=== PATIENT | male | born 1970 | race Two or more races ===

== ENCOUNTER 2020-05-28 19:07 | Emergency (ER) | payer BC, MEDICAID ==
[~2020-05-28] VITALS: Ht 167.6 cm; Wt 97.5 kg
[~2020-05-28 19:07] MED LIST: IBUP-1953 PO
--- NOTE | 2020-05-28 19:34 | NUR ---
PATIENT CAME TO ER BED 10 BIBWIFE C/O RED BUMPS ON EXTREMITIES AND NECK W/ ITCHINESS SINCE THIS MORNING. PATIENT DOES NOT KNOW WHAT MIGHT HAVE CAUSED IT. PATIENT STATES THAT HE TOOK CLARITIN AT 1300. NO SWELLING OF THROAT. PATIENT HAS LEFT EYELID SWELLING. PATIENT IS AAOX4. DENIES SOB. BREATHING EVENLY AND UNLABORED ON ROOM AIR. CONNECTED TO THE MONITOR.
[2020-05-28] MEDS ORDERED: DEXAMETHASONE 1 MG TABLET ONE (19:51)
[2020-05-28] MEDS ORDERED: DEXAMETHASONE 4 MG TABLET ONE (19:51)
[2020-05-28] MEDS ORDERED: diphenhydrAMINE HCL 25 MG CAPSULE ONE (19:51)
[2020-05-28] MEDS ORDERED: DIPHENHYDRAMINE HCL 12.5 MG/5 ML UDC PO ONE (20:00)
[2020-05-28] MEDS ORDERED: DEXAMETHASONE 1 MG TABLET PO ONE (20:00)
[2020-05-28 20:03] LABS: BASOPHILS # (AUTO) 0.1 /CMM (0.0-0.2); BASOPHILS % (AUTO) 0.6 % (0.0-2.0); EOSINOPHILS % (AUTO) 3.3 % (0.0-6.0); HEMATOCRIT 47 % (39-51); HEMOGLOBIN 16.2 g/dL (13.5-17.5); LYMPHOCYTES # (AUTO) 3.1 /CMM (0.8-4.8); LYMPHOCYTES % (AUTO) 38.6 % (20.0-44.0); MEAN CORPUSCULAR HGB CONC 35 g/dl (31.0-36.0); MEAN CORPUSCULAR VOLUME 88 fL (80-96); MONOCYTES # (AUTO) 0.5 /CMM (0.1-1.30); MONOCYTES % (AUTO) 6.3 % (2.0-12.0); NEUTROPHILS # (AUTO) 4.2 /CMM (1.8-8.9); NEUTROPHILS % (AUTO) 51.2 % (43.0-81.0); PLATELET COUNT (AUTO) 253 /CMM (150-450); RED BLOOD CELL COUNT(AUTO) 5.29 MIL/uL (4.5-6.0); WHITE BLOOD COUNT (AUTO) 8.1 K/uL (4.3-11.0)
[2020-05-28 20:36] LABS: CALCIUM, SERUM 8.7 mg/dL (8.5-10.1); POTASSIUM 4.2 mmol/L (3.5-5.1)
[2020-05-28 20:41] LABS: ALBUMIN 3.9 g/dL (3.4-5.0); BILIRUBIN,DIRECT 0.1 mg/dL (0.0-0.2); BILIRUBIN,TOTAL 0.6 mg/dL (0.2-1.0); TOTAL PROTEIN, SERUM 7.5 g/dL (6.4-8.2)
[2020-05-28] MEDS ORDERED: PRED20TA PO (20:48)
[2020-05-28 21:02] VITALS: BP 126/71
--- NOTE | 2020-05-28 21:02 | NUR ---
Patient discharged to home in stable condition. Written and verbal after care instructions given. Patient verbalizes understanding of instruction.
== END 2020-05-28 21:02 | disposition home or self-care (01) ==
LOC: ER 19:12
DX: L50.8 Other urticaria (principal); Z79.899 Other long term (current) drug therapy
CPT/HCPCS: 36415; 80048; 80076; 85025; 99283; J8540 ×2; Q0163 ×2